=== PATIENT | male | born 1940 | race Caucasian/White ===

== ENCOUNTER 2017-02-01 15:04 | Outpatient (CLI) | payer MEDICARE, BC | END 2017-02-01 15:05 | disposition home or self-care (01) | LOC: LAB 15:04 | PROVIDERS: ATTEND Urology | DX: Z12.5 Encounter for screening for malignant neoplasm of prostate (principal); N40.1 Benign prostatic hyperplasia with lower urinary tract symptoms; N13.8 Other obstructive and reflux uropathy | CPT/HCPCS: 36415; 84153 ==

== ENCOUNTER 2017-04-15 09:34 | Outpatient (CLI) | payer MEDICARE, BC ==
[2017-04-15 10:21] LABS: ALBUMIN 3.8 g/dL (3.2-5.5); ALBUMIN/GLOBULIN RATIO 1.2 (1.0-2.2); BILIRUBIN,TOTAL 0.5 mg/dL (0.2-1.0); CALCIUM 8.6 mg/dL (8.5-10.3); CREATININE 1.5 mg/dL (0.6-1.2); TOTAL PROTEIN 7.1 g/dL (6.7-8.2)
[2017-04-18 12:47] LABS: HDL LARGE 3731 nmol/L (4334-10815); LDL PARTICLE NUMBER 1433 nmol/L (1016-2185); LDL PATTERN B Pattern (A); LDL PEAK SIZE 206.8 Angstrom (> OR = 218.2); LDL SMALL 268 nmol/L (123-441)
== END 2017-04-15 09:35 | disposition home or self-care (01) ==
LOC: LAB 09:34
PROVIDERS: ATTEND Specialist
DX: E78.5 Hyperlipidemia, unspecified (principal)
CPT/HCPCS: 36415; 80053; 81599; 83704

== ENCOUNTER 2017-06-15 15:01 | Outpatient (CLI) | payer MEDICARE, BC ==
[2017-06-15 15:27] LABS: CALCIUM 9.2 mg/dL (8.5-10.3); CREATININE 1.4 mg/dL (0.6-1.2); MAGNESIUM 2.3 mg/dL (1.7-2.8)
== END 2017-06-15 15:02 | disposition home or self-care (01) ==
LOC: LAB 15:01
PROVIDERS: ATTEND Specialist
DX: I10 Essential (primary) hypertension (principal); I44.0 Atrioventricular block, first degree; R53.83 Other fatigue; I47.1 Supraventricular tachycardia
CPT/HCPCS: 36415; 80048; 83735; 84443

== ENCOUNTER 2017-07-29 09:35 | Outpatient (CLI) | payer MEDICARE, BC ==
[2017-07-29 10:47] LABS: ALBUMIN 3.7 g/dL (3.2-5.5); ALBUMIN/GLOBULIN RATIO 1.2 (1.0-2.2); BILIRUBIN,TOTAL 0.8 mg/dL (0.2-1.0); CALCIUM 8.4 mg/dL (8.5-10.3); CREATININE 1.3 mg/dL (0.6-1.2); MAGNESIUM 2.1 mg/dL (1.7-2.8); TOTAL PROTEIN 6.9 g/dL (6.7-8.2)
[2017-07-31 20:47] LABS: HDL LARGE 4145 nmol/L (3382-9376); LDL PARTICLE NUMBER 1251 nmol/L (732-2035); LDL PATTERN B Pattern (A); LDL SMALL 281 nmol/L (85-473)
== END 2017-07-29 09:36 | disposition home or self-care (01) ==
LOC: LAB 09:35
PROVIDERS: ATTEND Specialist
DX: E78.2 Mixed hyperlipidemia (principal); I10 Essential (primary) hypertension
CPT/HCPCS: 36415; 80053; 81599; 82465; 83704; 83718; 83735; 84478